=== PATIENT | male | born 1975 | race Two or more races ===

== ENCOUNTER 2017-02-26 15:07 | Emergency (ER) | payer MEDICAID ==
[~2017-02-26] VITALS: Ht 175.3 cm; Wt 130.8 kg
[2017-02-26] MEDS ORDERED: HYDROcodone/APAP 5/325 TABLET PO ONE (15:30)
[2017-02-26 16:00] LABS: HEMATOCRIT 41.5 % (39.2-51.8); HEMOGLOBIN 14.1 g/dL (13.7-18.0); WHITE BLOOD COUNT 6.7 x10^3/uL (3.4-10)
[2017-02-26] MEDS ORDERED: HYDROcodone/APAP 5/325 TABLET ONE (16:00)
[2017-02-26 16:08] LABS: ASPARTATE AMINO TRANSFERASE 26 U/L (15-37); BLOOD UREA NITROGEN 7 mg/dL (7-18)
[2017-02-26 17:56] VITALS: BP 118/84
[2017-02-26] MEDS ORDERED: OMNIPAQUE 350 MG/ML, 100ML BOTTLE ONE (18:12)
== END 2017-02-26 17:59 | disposition home or self-care (01) ==
LOC: ED 15:34
DX: K57.32 Diverticulitis of large intestine without perforation or abscess without bleeding (principal); M54.5 Low back pain
CPT/HCPCS: 36415; 74177; 80053; 81001; 83690; 85025; 87086; 99285; Q9967